=== PATIENT | female | born 1985 | race African-American/Black ===

== ENCOUNTER 2017-10-06 16:28 | Emergency (ER) | payer MEDICAID, OTHER ==
[~2017-10-06] VITALS: Ht 177.8 cm; Wt 90.7 kg
[~2017-10-06 16:28] MED LIST: NKM; VICODIN 5-5001 EACH PO
[2017-10-06 16:46] VITALS: BP 148/87
[2017-10-06] MEDS ORDERED: Ketorolac 60mg Inj IM ONE (17:15)
[2017-10-06] MEDS ORDERED: HYDROcodone/Acetamin 7.5/325 tab ORAL ONE (17:15)
--- NOTE | 2017-10-06 17:28 | Emergency Room Report ---
History of Present Illness General Chief Complaint: Pain Source: Patient Present Illness HPI 32 YO Female c/o /10 in severity left lower molar dental pain progressive x 2 weeks in addition to right-sided low back pain that shoots down the leg x 4 day(s) pt. reports she has been experiencing intermittent pain episodes over the last 6 months. denies trauma or fall. denies hx of cancer or recent spinal procedures. Patient states that she has multiple dental caries and dentist recommended root canal however patient had to postpone due to her finances. Patient denies fevers or chills. Patient states her pain has been progressive until it became unbearable today. Denies fevers or chills. Denies neck pain or stiffness. Denies CP, Palpitations, LOC, AMS, dizziness, Changes in Vision, Sensation, paresthesias, or a sudden severe headache. Allergies: Coded Allergies: No Known Allergies (Unverified , 07/01/12) Patient History Past Medical History: see triage record Past Surgical History: none Pertinent Family History: none Now: No Reviewed Nursing Documentation: PMH: Agreed; PSxH: Agreed Review of Systems All Other Systems: negative except mentioned in HPI Physical Exam Vital Signs Date Time Temp Pulse Resp B/P (MAP) Pulse Ox O2 Delivery O2 Flow Rate FiO2 10/06/17 16:36 98.5 97 20 148/87 100 Room Air 98.4 Sp02 EP Interpretation: reviewed, normal General Appearance: no apparent distress, alert, GCS 15, non-toxic Head: normocephalic, atraumatic ENT: hearing grossly normal, normal voice, other - obvious dental carries in teeth numbers: 18 & 19- tenderness to percussion with tongue blade. no palpable fluctuance of the gums. Neck: full range of motion Respiratory: lungs clear, normal breath sounds, speaking full sentences Cardiovascular #1: regular rate, rhythm Gastrointestinal: non tender, soft Musculoskeletal: back normal, gait/station normal, normal range of motion, tender - Right lumbar paraspinal ttp, right upper gluteal ttp, FROM of spine. Neurologic: alert, oriented x3, responsive, motor strength/tone normal, sensory intact, speech normal, grossly normal Psychiatric: judgement/insight normal Skin: normal color, no rash, warm/dry, well hydrated Lymphatic: no adenopathy Medical Decision Making PA Attestation Dr. Childress is my supervising Physician whom patient management has been discussed with. Diagnostic Impression: Primary Impression: Sciatica of right side Additional Impressions: Pain, dental Tooth pulpitis ER Course Pt. presents to the ED c/o 04/15 in severity left lower molar dental pain progressive x 2 weeks in addition to right-sided low back pain that shoots down the leg x 4 day(s) pt. reports she has been experiencing intermittent pain episodes over the last 6 months. denies trauma or fall. denies hx of cancer or recent spinal procedures. Patient states that she has multiple dental caries and dentist recommended root canal however patient had to postpone due to her finances. Patient denies fevers or chills. Patient states her pain has been progressive until it became unbearable today. Denies fevers or chills. Denies neck pain or stiffness. Denies CP, Palpitations, LOC, AMS, dizziness, Changes in Vision, Sensation, paresthesias, or a sudden severe headache. + DENTAL PAIN x 4 days. Ddx considered but are not limited to Fracture, dislocation, contusion, epidural abscess, Sprain/Strain/Spasm Vital signs: are WNL, pt. is afebrile H&PE are most consistent with sciatica and dental pain most likely due to infected dental carries. ORDERS: X-ray not required at this time, no spinous process tenderness ED INTERVENTIONS: -IM Toradol 20mg. -[place] PO Re-Evaluation: pt. states his pain has subsided with ED interventions -Pt. given list of low-cost dental clinics. pt .to follow up with Dentist as well as PCP. DISCHARGE: At this time pt. is stable for d/c to home. Will provide printed patient care instructions, and any necessary prescriptions. Care plan and follow up instructions have been discussed with the patient prior to discharge. Last Vital Signs Date Time Temp Pulse Resp B/P (MAP) Pulse Ox O2 Delivery O2 Flow Rate FiO2 10/06/17 16:36 98.5 97 20 148/87 100 Room Air 98.4 Disposition: HOME, SELF-CARE Condition: Stable Scripts Lidocaine (Lidoderm) 1 Each Adh..patch 1 PATCH TOPIC DAILY, #30 PATCH 0 Refills Patch(es) may remain in place for up to 12 hours in any 24-hour period. Prov: Aide Michaels 10/06/17 Methocarbamol* (ROBAXIN*) 500 Mg Tablet 1000 MG PO TID, #42 TAB 0 Refills Prov: Aide Michaels 10/06/17 Benzocaine (ANBESOL) 9 Gm Gel..gram. 9 GM MM QID PRN for For Pain, #9 GM Prov: Aide Michaels 10/06/17 Acetaminophen* (TYLENOL EXTRA STRENGTH*) 500 Mg Tablet 500 MG ORAL Q6H, #20 TAB 0 Refills Prov: Aide Michaels 10/06/17 Amoxicillin* (AMOXIL*) 500 Mg Capsule 500 MG ORAL BID for 7 Days, #14 CAP Prov: Aide Michaels 10/06/17 Patient Instructions: Dental Pain, [id number], Sciatica, [id number] Additional Instructions: Take medications as directed. Follow up with a DENTIST and a Primary Care Provider in 3-5 days, even if your symptoms have resolved. --Please review list of primary care clinics, if you do not already have a primary care provider Return sooner to ED if new symptoms occur, or current symptoms become worse. Do not drink alcohol, drive, or operate heavy machinery while taking Robaxin as this may cause drowsiness. - Please note that this Emergency Department Report was dictated using [employer] technology software, occasionally this can lead to erroneous entry secondary to interpretation by the dictation equipment. Aide Michaels Oct 06, 2017 17:28
[2017-10-06] MEDS ORDERED: AMOXICILLIN500 MG ORAL (17:32)
[2017-10-06] MEDS ORDERED: ROBAXIN500 MG PO (17:32)
[2017-10-06] MEDS ORDERED: LIDODERM700 M1 TOPIC (17:32)
[2017-10-06] MEDS ORDERED: ANBESOL9 G1 MM (17:32)
[2017-10-06] MEDS ORDERED: TYLENOL EXTRA500 MG ORAL (17:32)
[2017-10-06 18:05] VITALS: BP 148/87
== END 2017-10-06 18:08 | disposition home or self-care (01) ==
LOC: EMR 17:45
DX: K08.89 Other specified disorders of teeth and supporting structures (principal); K04.90 Unspecified diseases of pulp and periapical tissues; M54.31 Sciatica, right side
CPT/HCPCS: 96372; 99284

== ENCOUNTER 2019-05-15 11:58 | Emergency (ER) | payer OTHER ==
[~2019-05-15] VITALS: Ht 177.8 cm; Wt 102.1 kg
[~2019-05-15 11:58] MED LIST changes: +AMOXICILLIN500 MG ORAL; +ANBESOL9 G1 MM; +LIDODERM700 M1 TOPIC; +NITROFURANTOIN100 M2 ORAL; +PHENAZOPYRIDIN100 MG ORAL; +ROBAXIN500 MG PO; +TYLENOL EXTRA500 MG ORAL
[2019-05-15 12:39] VITALS: BP 134/88
[2019-05-15] MEDS ORDERED: AMOXICILLIN500 MG ORAL (12:39)
--- NOTE | 2019-05-15 12:41 | NUR ---
ED Nurse Note: Patient walked in to ER from home due to toothace. no gum bleeding or swelling noted at this moment. Patient alert and oriented x4 and ambulatory. skin clean and intact. calm and cooperative. no acute distress noted at this time.
[2019-05-15 12:43] VITALS: BP 127/74
--- NOTE | 2019-05-15 12:43 | NUR ---
ED Nurse Note: Pt cleared by health care Provider for discharge. DC instructions/prescription was given and explained to pt and verbalized understanding of teachings. All medical deviecs such as ID band removed. Pt is AAO x4, ambulatory and left with all personal belongings.
--- NOTE | 2019-05-15 12:43 | Emergency Room Report ---
History of Present Illness General Chief Complaint: Toothache Source: Patient Present Illness HPI 33-year-old female complaining of toothache x2 to 3 days. Denies fever, chills vomiting, abdominal pain, chest pain, shortness of breath. Pain is 6/10, sharp in quality. Has taken otc excedrin without relief. Has appointment with dentist this coming week. Allergies: Coded Allergies: No Known Allergies (Unverified , 07/01/12) Patient History Past Medical History: none Past Surgical History: none Social History: Reports: smoking - Marijuana Last Menstrual Period: 05/13/19 Now: No Nursing Documentation-[facility] Past Medical History: No Stated History Review of Systems All Other Systems: negative except mentioned in HPI Physical Exam Vital Signs Date Time Temp Pulse Resp B/P (MAP) Pulse Ox O2 Delivery O2 Flow Rate FiO2 05/15/19 12:18 98.8 79 16 134/88 (103) 98 Room Air Sp02 EP Interpretation: reviewed, normal ENT: hearing grossly normal, normal pharynx, no angioedema, normal voice, other - tenderness to right upper tooth, no swelling. Respiratory: chest non-tender, lungs clear, normal breath sounds, speaking full sentences Cardiovascular #1: regular rate, rhythm, no edema Musculoskeletal: gait/station normal Neurologic: normal inspection, alert, oriented x3 Skin: no rash, warm/dry Medical Decision Making PA Attestation This patient was seen under the direct supervision of Dr. Baptiste, who directed all aspects of care and diagnostic interpretation. Diagnostic Impression: Primary Impression: Toothache ER Course ED course HPI: 33-year-old female complaining of toothache x2 to 3 days. Denies fever, chills vomiting, abdominal pain, chest pain, shortness of breath. Pain is 6/10, sharp in quality. Has taken otc excedrin without relief. Has appointment with dentist this coming week. Ddx: cavity, periodontal disease, dental abscess HPI & PE consistent with: toothache Orders/ Interventions: None Disposition: Rx for amoxicillin 500mg TID x 1 week. Soft liquid diet. Oral hygiene discussed. Ibuprofen or acetaminophen for pain PRN. At this time pt. is stable for d/c to home. Will provide printed patient care instructions, and any necessary prescriptions. Care plan and follow up instructions have been discussed with the patient prior to discharge. Please note that this Emergency Department Report was dictated using [employer] technology software, occasionally this can lead to erroneous entry secondary to interpretation by the dictation equipment. Last Vital Signs Date Time Temp Pulse Resp B/P (MAP) Pulse Ox O2 Delivery O2 Flow Rate FiO2 05/15/19 12:39 98.8 84 16 134/88 98 Room Air Disposition: HOME, SELF-CARE Condition: Stable Scripts Amoxicillin* (AMOXIL*) 500 Mg Capsule 500 MG ORAL EVERY 8 HOURS for 7 Days, #21 CAP Prov: Eric Wallace 05/15/19 Referrals: NON PHYSICIAN (PCP) Patient Instructions: Dental Pain Additional Instructions: Follow-up with dentist as soon as possible or return to ER if worsening symptoms , new symptoms or sudden change in condition. Eric Wallace May 15, 2019 12:43
== END 2019-05-15 12:44 | disposition home or self-care (01) ==
LOC: EMR 12:36
DX: K08.89 Other specified disorders of teeth and supporting structures (principal); F12.90 Cannabis use, unspecified, uncomplicated
CPT/HCPCS: 99282